=== PATIENT | male | born 1950 | race Caucasian/White ===

== ENCOUNTER 2016-11-09 20:23 | Inpatient (IN) | payer MEDICARE, BC ==
[~2016-11-09] VITALS: Ht 185.4 cm; Wt 113.4 kg
--- NOTE | ~2016-11-09 | PR ---
[place], [place] PROGRESS NOTE NAME: [id number] UNIT #: [id number] ROOM: 309 DOCTOR: YUDITH HUNTER COREY BIRTHDATE: [birth year] DOS: 11/11/2016 CHIEF COMPLAINT: "Good morning." SUMMARY OF VISIT: The patient was assessed, interviewed in the dining room where he was being fed breakfast by a nurse. He is quite sedate this morning. His behaviors and impulsivity and outburst became so extreme last night that they had to give him Geodon. It should also be noted that since the Geodon injection, he has had hypersalivation, which he has had this before with other antipsychotics including Clozaril. The patient was able to talk to me, carry on a minimal conversation, but he could tell he was fighting to the medications on board. Apparently, he is pleasant for the most part and calm throughout the day and at nighttime, he completely loses control, tries to get out of bed and with his Parkinson's, could injure himself, becomes combative, very similar to what we are being told from the [facility]. PLAN: We will continue with the Exelon patch. I increased his Klonopin yesterday and added in between p.r.n. Vistaril if needed. This is just not enough to take away his extreme mood lability at night. I know we have Lewy body dementia on a RaDAR with his Parkinson's, but it is almost like every night and in the evenings, somewhat just ing that, he becomes out of control. The Geodon did work on him, but again, we have the hypersalivation, so I am going to try Seroquel. If it is Lewy body, I feel pretty good about using the Seroquel, so I am going to add 100 mg at bedtime to see if we can head off this owning or whatever it is and help him stay in bed and sleep at night without the behaviors. MENTAL STATUS: He is alert and oriented to person, I do not think place or time. No overt signs of auditory or visual hallucinations, delusions, paranoia, mark or hypomania. PLAN: Again, I am adding the 100 mg Seroquel at bedtime, continue with the Exelon and the Klonopin, the Remeron and the Vistaril p.r.n. The goal is to try and control these nighttime rages behaviors that he is having without oversedation. [place], [place] PROGRESS NOTE NAME: OPAL GOODMAN UNIT #: [id number] ROOM: [facility] DOCTOR: YUDITH HUNTER BIRTHDATE: [birth year] COREY HUNTER CNP CM:PNYVETTE [id number] YUDITH HUNTER 11/11/16 1247 interface
--- NOTE | ~2016-11-09 | PR ---
[place], [place] PROGRESS NOTE NAME: OPAL GOODMAN UNIT #: [id number] ROOM: 309 DOCTOR: YUDITH HUNTER BIRTHDATE: [birth year] DOS: 11/13/2016 CHIEF COMPLAINT: "Good morning." SUMMARY OF VISIT: The patient was assessed in the dining room where he was waiting for breakfast. He engaged in conversation, he is most alert I have seen him. Nurses noted though; however, he was quite behavioral throughout the day yesterday. His mood lability is quite wild. He is calm 1 minute and then cussing and very bizarre the next. He did sleep though last night with the assistance of the Seroquel. MENTAL STATUS: He is alert and oriented to person, place, not time. Mood still quite widely labile. Affect is inappropriate. No overt signs of auditory or visual hallucinations, mark or hypomania, but when his mood swings, he does become quite paranoia and delusional. PLAN: Dr. Ruiz did increase his Seroquel to 50 mg in the morning and 100 at night. I am going to go ahead and increase the daytime dosage from 50 q.a.m. to 50 b.i.d. and keep the 100 mg at night since he is sleeping on the 100 mg. I am trying to head off some of this mood lability. He is not on any Parkinson's drugs at this time. Dr. Ruiz wanted to know why. Per his who is his guardian, he was on them previously and had bad reactions to them, so this is why he is not on them. While tried to get a list of the specific medications that he had reactions to, it should be noted that he was also the patient that was here previously on Clozaril who became hypersalivatory and I think this is pretty much what goes on with him when he gets starting medication in the system. We will continue to try to engage in individual and marti milieu therapy, we are just trying to decrease or stop these wild mood swings and go from there. COREY HUNTER CNP CM:PNTRANS [id number] YUDITH HUNTER 12/25/16 1226 interface
--- NOTE | ~2016-11-09 | DS ---
[place], [place] DISCHARGE SUMMARY NAME: [facility] GOODMAN [facility] [id number] UNIT #: [id number] ROOM: 309 DOCTOR: JONN ENCARNACION MD BIRTHDATE: [birth year] DOS: 11/19/2016 CHIEF COMPLAINT: "I better not tell you why I am here because you just going to keep me longer" HISTORY OF PRESENT ILLNESS: This is a 66-year-old white male, who was readmitted here from [facility]. The patient has a lengthy history of Parkinson's disease, diagnosed approximately 9 years ago and he has progressed to the point now where it is causing some cognitive loss as well as significant auditory and visual hallucinations. The patient has become actively psychotic while [place]. He has been seeing things come out of the TV, children playing in the yard and playing with him. He reported that there was a baby in his room all night long and that kept him up. He has become increasingly more agitated towards staff as well as verbally and physically aggressive to them to the point where they no longer could care for him safely. The patient had been here previously in 09/2016. He was attempted to be stabilized on Clozaril at that time, but it caused excessive hypersalivation and the addition of Cogentin did not help. Eventually, he was stabilized just on Exelon patch and Depakote and sent back to [place]. Since his symptoms have progressed further, he is now readmitted to rule out any further organic factors to attempt to restabilize on medication, ultimately returning to [facility] once psychiatrically stable. PAST MEDICAL HISTORY: Remarkable for the lengthy history of Parkinson's disease, GERD, DVT, and hypertension. SUMMARY OF HOSPITAL COURSE: The patient was admitted to the unit where he was maintained on his Exelon patch 13.3 mg a day. THE PATIENT HAS A SIGNIFICANT ALLERGY TO NAMENDA, so he could not be augmented with this. His Klonopin dose was increased from 0.5 twice a day to 0.5 three times a day in order to decrease some of his impulsivity. Due to the severity of his psychotic symptoms and extreme mood lability as well as paranoia, he was started on Seroquel as an antipsychotic with low extrapyramidal side effect risk. He tolerated the Seroquel well and the dose was gradually increased to its maximum dose of 50 mg twice daily and 150 mg at bedtime. He did not exhibit any sedation or somnolence during the day from the Seroquel nor did he seem to have a worsening of the parkinsonian symptoms. It did impact positively on decreasing the frequency and intensity of his hallucinations as well as decreasing his mood lability. Some mild paranoia remained, but he was redirectable. He had improved sufficiently by 11/19/2016 to return back to [facility]. MENTAL STATUS AT DISCHARGE: The patient is alert and oriented to person, place and not necessarily to time. Mood was strongly trending towards euthymia. Affect was much more appropriate. Speech rate and pattern were very slow and deliberate and he has some marked processing difficulty. Short-term memory is poor. His overall level of delusions and paranoia had decreased from his admission. 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 [place], [place] DISCHARGE SUMMARY NAME: OPAL GOODMAN UNIT #: [id number] ROOM: 309 DOCTOR: JONN ENCARNACION MD BIRTHDATE: [birth year] PLAN: All of his prescriptions have been sent to [facility] a long-term care pharmacy. His Klonopin prescription has been printed and will be sent with him. I will follow him upon his return to [facility]. JONN ENCARNACION MD CM:KATLYN [phone] JONN ENCARNACION MD 11/19/16 0807 interface
--- NOTE | ~2016-11-09 | PR ---
[place], [place] PROGRESS NOTE NAME: OPAL GOODMAN UNIT #: [id number] ROOM: 309 DOCTOR: JONN ENCARNACION MD BIRTHDATE: [birth year] DOS: 11/15/2016 INTERVAL NOTE CHIEF COMPLAINT: "I have no comment about [facility]." SUMMARY OF THE VISIT: The patient was interviewed in the dining area. He had completed his breakfast and engaged readily in conversation. He was predominantly superficial and reported no issues. He reported that he slept well and ate a good breakfast. When I discussed going back to [place] and whether he liked it there, he was rather negative at first and then kept telling me no comment. He was at least pleasant, however, and exhibited no agitation or aggression. MENTAL STATUS EXAMINATION: This morning, he is alert and oriented to person, select others place, but not time. He lacks spontaneity and his responses tended to be short and simple. There was no hypomania or mark present. There was no overt auditory or visual hallucinations voiced. No paranoia, no delusions. Short-term memory was extremely poor. PLAN: At the present time, I will maintain his current psychotropic regimen that includes Seroquel, Remeron, and Exelon patch. We will continue to engage him in individual and mrati milieu activity with the ultimate plan to return to [facility] when psychiatrically stable. JONN ENCARNACION MD CM:PNTRANS [phone] JONN ENCARNACION MD 11/16/16 0158 interface
--- NOTE | ~2016-11-09 | WRIGHTHP ---
[place], [place] PATIENT HISTORY AND PHYSICAL EXAM [id number] UNIT #: [id number] ROOM: 309 DOCTOR: YUDITH HUNTER BIRTHDATE: [birth year] DOS: 11/10/2016 HISTORY OF PRESENT ILLNESS: A 66-year-old male known to us due to recent discharge from the behavioral unit on 09/20/2016 to [facility]. He has a history of Parkinson's disease diagnosed approximately 9 years ago and it has progressed. He is starting to have dementia as well. He does follow with doctors at the [facility]. He does become actively psychotic seeing things on the TV, children playing in the yard and playing with him. There is a baby in the room all night long, actually hallucinating, acting out towards his . At the time of his discharge on 09/20/2016, we had Lewy body dementia as a possibility on the spectrum, so we were being cautious about what medications to use. In the past, we used Clozaril, but caused hypersalivation and the Cogentin did not help, so that had to be discontinued. He is also allergic to Namenda. Diagnosis includes Parkinson's disease, PBA, dementia. PLAN: I am keeping him on his Exelon patch 13.3 mg every day for his dementia. I am going to increase his Klonopin. He is quite impulsive. He was on 0.25 q.a.m. and 0.5 at night. I increased him yesterday to 0.5 b.i.d., but I am going to go ahead and go up to 0.5 t.i.d. to see if I can help with some of the mood lability and impulsivity and being cautious trying to avoid antipsychotics because of the possibility of Lewy body dementia. I am going to add some Vistaril p.r.n. for the staff to use also if he becomes behavioral. We have the Geodon and Ativan p.r.n. if needed. I have discussed in length the caution for falls risk and just keep a close eye on him. I will use a Lori chair the next 24 hours and get a better appreciation as far as what is going on with him. He is not sleeping, so I added Remeron 15 mg at bedtime along again with his Nuedexta we are continuing trying to keep the medications as simple as possible. MENTAL STATUS EXAMINATION: He is alert and oriented to person, not place or time. Per the Emergency Room doctor that called me last night he was delusional, possibly even hallucinating. He is still somewhat sleepy this morning because it is early and he did not get all his meds till about 2:00 a.m. this morning. No mark or hypomania. Poor sleep. Appetite, so-so. PAST MEDICAL HISTORY: Includes Parkinson's disease, GERD, DVT, and hypertension. PLAN: I am going to go ahead and add back his vitamin D. He was vitamin D deficient. Increase his Klonopin to 0.5 t.i.d., watch for over sedation, keep his Exelon and Nuedexta where they are at and we will add some Vistaril p.r.n. I do not know how effective individual and marti milieu therapy will be for this gentleman, but we will observe him over the next 24 hours. I will make some adjustments in meds as appropriate. [place], [place] PATIENT HISTORY AND PHYSICAL EXAM NAME: OPAL GOODMAN UNIT #: [id number] ROOM: 309 DOCTOR: YUDITH HUNTER BIRTHDATE: [birth year] COREY HUNTER CNP CM:HISPHYS:PATIENT HISTORY AND PHYSICAL EXAMINATION [phone] YUDITH HUNTER 12/25/16 1221 interface
--- NOTE | ~2016-11-09 | PR ---
[place], [place] PROGRESS NOTE NAME: OAPL GOODMAN UNIT #: [id number] ROOM: 309 DOCTOR: YUDITH HUNTER BIRTHDATE: [birth year] DOS: 11/14/2016 CHIEF COMPLAINT: "Good morning." SUMMARY OF VISIT: The patient assessed and interviewed in the dining room where he was watching TV. He was alert, engaging in conversation, smiled appropriately. States that he is feeling overall well. It should be noted that I discussed his issues with nursing and psychologist social. Apparently, the came to visit yesterday and then under 5 minutes, he became agitated, yelling. She got up and left. He is still accusing her of an affair and some other things, so I do not know how much of this is delusion and paranoia and how much of this is grounded in fact. I guess we need to figure this out because he may be behavioral towards her because something truly is going on or is he behavioral towards her because he is just delusional and paranoid because of his illness. MENTAL STATUS: He is alert and oriented to person, place, approximate time. Mood actually was trending towards euthymic, but yesterday, kind of had a setback with the . She is definitely a trigger so he can be wildly labile at times with certain interactions. Affect was appropriate for me. There are no overt signs of auditory or visual hallucinations. Again, yesterday, I do not know if that was a delusion or paranoia towards his or if it is rooted in some type of fact, I am not sure how to find that out. PLAN: Nursing did notice that he did better on the higher doses of Seroquel yesterday that I added. There is no hypersalivation that I can see. So, I am going to increase the nighttime dose and we will have Seroquel 50 mg once in the morning, once in the afternoon and 150 at night. He did state that he slept very well last night. We will continue with the other meds. We are going to try to engage in individual and marti milieu therapy and discharge once stable. COREY HUNTER CNP CM:PNTRANS 0747 YUDITH HUNTER 11/15/1637 interface
--- NOTE | ~2016-11-09 | PR ---
[place], [place] PROGRESS NOTE NAME: OPAL GOODMAN UNIT #: [id number] ROOM: 309 DOCTOR: JONN ENCARNACION MD BIRTHDATE: [birth year] DOS: 11/12/2016 INTERVAL NOTE CHIEF COMPLAINT: "I am not talking because it's just going to implicate me further and all the problems." SUMMARY OF THE VISIT: The patient was interviewed in the dining area where he was eating breakfast. He stopped and engaged in conversation. There was a great deal of paranoia present and he would not talk to me stating that what was happening to him was because people were plotting against him. He wanted me to call his sons and see if they could come and pick him up and take him home today. The patient continues to be very bizarre and very labile with his mood swings. MENTAL STATUS: He is alert and oriented to person, place, but not time. Mood does seem to be labile. Affect is inappropriate. There are no symptoms of mark or hypomania, but there is a great deal of delusions and paranoia present. Short-term memory has gaps. PLAN: I will increase his Seroquel to 50 mg in the morning and 100 mg at night while maintaining his other psychotropics. Of note, he is not on any antiparkinsonian drugs. I need to find out if this is because he is sensitive to them and has not done well. He would certainly seem to benefit from some Sinemet, Symmetrel or other agent that might improve his quality of life. JONN ENCARNACION MD CM:PNTRANS [id number] JONN ENCARNACION MD 11/12/16 1015 interface
--- NOTE | ~2016-11-09 | PR ---
[place], [place] PROGRESS NOTE NAME: OPAL GOODMAN UNIT #: [id number] ROOM: 309 DOCTOR: JONN ENCARNACION MD BIRTHDATE: [birth year] DOS: 11/16/2016 INTERVAL NOTE CHIEF COMPLAINT: "When do I get to leave here?" SUMMARY OF THE VISIT: The patient was interviewed as he sat in a Lori chair in the dining area. He remains rather negativistic reporting that he stated his breakfast. He does not like it here and wants to know when he can go back to [facility]. When I try to delve further into his thinking, He very quickly became paranoid and suspicious and repeatedly said, "I better not say what I'm thinking." Nurses report he continues to be rather terse with them and is irritable and short fused, but overall redirectable. He is tolerating his medication regimen well without any apparent side effects. MENTAL STATUS: He is alert and oriented to person, place, and approximate to time. Mood does still seem to be somewhat irritable and on edge. There is no symptom suggestive of hypomania or mark. There is no overt auditory or visual hallucination. There is a certain amount of paranoia present as he is rather guarded and very careful as to what to say. Short-term memory has gaps. PLAN: I will go ahead and renew his Klonopin, Ativan and hydroxyzine p.r.n.'s maintaining his current psychotropic regimen, continue to engage him in individual and marti milieu activity with the ultimate plan to return to [facility] when stable. JONN ENCARNACION MD CM:PNTRANS [phone] JONN ENCARNACION MD 11/17/16101 interface
--- NOTE | ~2016-11-09 | PR ---
[place], [place] PROGRESS NOTE [id number] UNIT #: [id number] ROOM: 309 DOCTOR: JONN ENCARNACION MD BIRTHDATE: [birth year] DOS: 11/18/2016 [facility] COMPLAINT: "I would like to go today but I guess I can wait till tomorrow." SUMMARY OF THE VISIT: The patient was interviewed in the dining area. He was sitting there comfortable and engaged readily in conversation with me. He had heard me tell many other patients that discharge might be till Friday due to transportation issues, so as I approached him, he did report that he would like to go today but tomorrow it would work if there were no other options. He was bright and pleasant upon approach, slow to process, but this is his baseline. There was no agitation or aggression. There was no mood lability noted. He also seemed to be tolerating the current medication regimen well and I see no extrapyramidal symptoms, tardive dyskinesia, or any other side effects. MENTAL STATUS: He is alert and oriented to person, place, but not time. Mood does seem to be trending towards euthymia and affect is much more appropriate. There are no symptoms suggestive of mark or hypomania. Likewise there are no overt auditory or visual hallucinations. No delusions are present. No paranoia is noted at this time. He does process very slowly and responds slowly as well. Short-term memory has gaps, otherwise, he is intact. PLAN: I will maintain the current psychotropic regimen and continue to monitor for risk and benefits. Continue to engage in individual and marti milieu activity with the ultimate plan to return to [facility] once psychiatrically stable. JONN ENCARNACION MD CM:PNTRANS [id number] JONN ENCARNACION MD 12/25/16 1223 interface
[~2016-11-09 20:23] MED LIST: 'CLONIDINE0.1 MG PO; AMANTADINE HCL100 M1 PO; ARICEPT10 M1 PO; ATIVAN1 MG PO; B COMPLEX & B121 TAB PO; CEFUROXIME AXE500 MG PO; CLONAZEPAM0.5 M2 PO; CLONIDINE HCL0.1 M1 PO; CLOZAPINE25 MG PO; COLACE100 MG PO; COUMADIN3 M1 PO; COUMADIN4 M2 PO; COUMADIN5 M2 PO; EXEL13.31 TD; EXELON13.3 MG/21 T; EXELON13.3 MG/21 TD; FLOMAX0.4 MG PO; KLONOPIN0.5 MG PO; LASIX40 MG PO; MIRTAZAPINE15 M2 PO; NIFEDIPINE30 MG PO; NUED1CAP PO; OMEPRAZOLE40 MG PO; SEROQUEL25 MG PO; TYLENOL325 M1 PO; VITAMIN B1250 MCG PO; VITAMIN D50000 I3 PO; ZOLOFT50 MG PO
[2016-11-09 20:51] VITALS: BP 162/78
[2016-11-09] MEDS ORDERED: ATIVAN2 MG/ML IM (21:16)
[2016-11-09] MEDS ORDERED: KLONOPIN0.5 MG PO (21:22)
[2016-11-09 23:30] VITALS: BP 135/75
[2016-11-10 07:28] LABS: FOLIC ACID 7.86 ng/mL (>5.38); VITAMIN D, 25-HYDROXY 51.1 ng/mL (30-100)
[2016-11-10 08:33] VITALS: BP 153/86
[2016-11-10 12:53] LABS: BASO # 0.1 10*3/uL (0.0-0.1); BASO % 0.7 % (0.0-1.0); EOS # 0.2 10*3/uL (0.0-0.4); EOS % 3.1 % (1.0-4.0); HEMATOCRIT 40.8 % (42.0-52.0); HEMOGLOBIN 12.9 g/dl (14.0-18.0); LYMPH # 1.6 10*3/uL (1.3-4.4); LYMPH % 23.8 % (27.0-41.0); MEAN CELL VOLUME 92.3 fl (80.0-94.0); MEAN CORPUSCULAR HGB 29.2 pg (27.0-31.0); MEAN CORPUSCULAR HGB CONC 31.6 g/dl (33.0-37.0); MEAN PLATELET VOLUME 9.1 fl (9.6-12.3); MONO # 0.3 10*3/uL (0.1-1.0); MONO % 3.9 % (3.0-9.0); NEUT # 4.6 10*3/uL (2.3-7.9); NEUT % 68.4 % (47.0-73.0); PLATELET COUNT AUTOMATED 320 10*3/uL (130-400); RED BLOOD COUNT 4.42 10*6/uL (4.50-5.90); RED CELL DISTRI WIDTH 12.5 % (0-14.5); WHITE BLOOD COUNT 6.7 10*3/uL (4.8-10.8)
[2016-11-10 13:03] LABS: INTERNATIONAL NORM RATIO 1.4 (2.0-3.5); PROTHROMBIN TIME 14.6 SECONDS (9.0-12.4)
[2016-11-10 13:10] LABS: ALBUMIN 3.5 gm/dl (3.1-4.5); ALKALINE PHOSPHATASE 84 U/L (45-117); BILIRUBIN, TOTAL 0.4 mg/dl (0.2-1.0); BUN 15 mg/dl (7-24); CARBON DIOXIDE 29 mmol/L (21-32); CHLORIDE 104 mmol/L (98-107); EST GLOM FILT AFRICAN AMERICAN > 60 ml/min; GLUCOSE 123 mg/dL (65-99); SGOT/AST 16 IU/L (3-35); SGPT/ALT 23 U/L (12-78); SODIUM 142 mmol/L (136-145); TOTAL PROTEIN 7.9 gm/dL (6.4-8.2)
[2016-11-10 19:47] VITALS: BP 149/87
[2016-11-11 07:17] LABS: INTERNATIONAL NORM RATIO 1.3 (2.0-3.5); PROTHROMBIN TIME 13.6 SECONDS (9.0-12.4)
[2016-11-11 08:15] VITALS: BP 115/68
[2016-11-11 19:57] VITALS: BP 106/66
[2016-11-12 08:00] VITALS: BP 102/62
[2016-11-12 08:05] LABS: INTERNATIONAL NORM RATIO 1.3 (2.0-3.5); PROTHROMBIN TIME 13.8 SECONDS (9.0-12.4)
[2016-11-12 19:57] VITALS: BP 125/70
[2016-11-13 08:00] VITALS: BP 101/65
[2016-11-13 08:02] LABS: INTERNATIONAL NORM RATIO 1.3 (2.0-3.5)
[2016-11-13 19:59] VITALS: BP 131/69
[2016-11-14 07:34] LABS: INTERNATIONAL NORM RATIO 1.5 (2.0-3.5); PROTHROMBIN TIME 15.9 SECONDS (9.0-12.4)
[2016-11-14 08:27] VITALS: BP 110/64
[2016-11-14 20:20] VITALS: BP 101/67
[2016-11-15 07:25] LABS: BASO % 0.6 % (0.0-1.0); EOS # 0.2 10*3/uL (0.0-0.4); EOS % 3.3 % (1.0-4.0); HEMATOCRIT 41.7 % (42.0-52.0); HEMOGLOBIN 13.2 g/dl (14.0-18.0); LYMPH # 1.5 10*3/uL (1.3-4.4); LYMPH % 22.1 % (27.0-41.0); MEAN CELL VOLUME 92.3 fl (80.0-94.0); MEAN CORPUSCULAR HGB 29.2 pg (27.0-31.0); MEAN CORPUSCULAR HGB CONC 31.7 g/dl (33.0-37.0); MEAN PLATELET VOLUME 10.1 fl (9.6-12.3); MONO # 0.5 10*3/uL (0.1-1.0); MONO % 7.7 % (3.0-9.0); NEUT # 4.4 10*3/uL (2.3-7.9); NEUT % 66.2 % (47.0-73.0); PLATELET COUNT AUTOMATED 262 10*3/uL (130-400); RED BLOOD COUNT 4.52 10*6/uL (4.50-5.90); WHITE BLOOD COUNT 6.7 10*3/uL (4.8-10.8)
[2016-11-15 07:43] LABS: BUN 16 mg/dl (7-24); CARBON DIOXIDE 29 mmol/L (21-32); CHLORIDE 105 mmol/L (98-107); EST GLOM FILT AFRICAN AMERICAN > 60 ml/min; GLUCOSE 85 mg/dL (65-99); POTASSIUM 4.1 mmol/L (3.5-5.1); SODIUM 143 mmol/L (136-145)
[2016-11-15 07:50] LABS: INTERNATIONAL NORM RATIO 1.9 (2.0-3.5); PROTHROMBIN TIME 21.1 SECONDS (9.0-12.4)
[2016-11-15 08:00] VITALS: BP 149/82
[2016-11-15 20:00] VITALS: BP 148/81
[2016-11-16 07:04] LABS: INTERNATIONAL NORM RATIO 2.4 (2.0-3.5); PROTHROMBIN TIME 26.6 SECONDS (9.0-12.4)
[2016-11-16 08:40] VITALS: BP 138/79
[2016-11-16 20:01] VITALS: BP 110/63
[2016-11-17 06:57] LABS: INTERNATIONAL NORM RATIO 2.6 (2.0-3.5); PROTHROMBIN TIME 28.4 SECONDS (9.0-12.4)
[2016-11-17 08:01] VITALS: BP 121/69
[2016-11-17 19:53] VITALS: BP 118/70
[2016-11-18 07:35] LABS: INTERNATIONAL NORM RATIO 3.4 (2.0-3.5); PROTHROMBIN TIME 37.1 SECONDS (9.0-12.4)
[2016-11-18 08:00] VITALS: BP 137/76
[2016-11-18 19:49] VITALS: BP 98/61
[2016-11-18 20:49] VITALS: BP 102/66
[2016-11-19 07:10] LABS: INTERNATIONAL NORM RATIO 3.5 (2.0-3.5); PROTHROMBIN TIME 38.7 SECONDS (9.0-12.4)
[2016-11-19] MEDS ORDERED: QUETIAPINE FUMA50 M1 PO ×2 (07:39)
[2016-11-19] MEDS ORDERED: QUETIAPINE FUM100 M3 PO (07:39)
[2016-11-19] MEDS ORDERED: CLONAZEPAM0.5 M2 PO (07:39)
[2016-11-19 08:39] VITALS: BP 111/64
[2016-11-19] MEDS ORDERED: COUMADIN6 M2 PO (12:27)
[2016-11-19] MEDS ORDERED: Coumadin5 MG PO (12:29)
== END 2016-11-19 13:20 | disposition other institution (70) | DRG 885 ==
LOC: 3N 20:23
PROVIDERS: Internal Medicine; Nurse Practitioner Adult Health
DX: F33.3 Major depressive disorder, recurrent, severe with psychotic symptoms (principal); G93.41 Metabolic encephalopathy; G20 Parkinson's disease; F02.80 Dementia in other diseases classified elsewhere, unspecified severity, without behavioral disturbance, psychotic disturbance, mood disturbance, and anxiety; F23 Brief psychotic disorder; N39.0 Urinary tract infection, site not specified; I10 Essential (primary) hypertension; K21.9 Gastro-esophageal reflux disease without esophagitis; W19.XXXA Unspecified fall, initial encounter; M54.5 Low back pain; Z80.1 Family history of malignant neoplasm of trachea, bronchus and lung; Z86.718 Personal history of other venous thrombosis and embolism; Z79.01 Long term (current) use of anticoagulants; Z79.899 Other long term (current) drug therapy; Z88.8 Allergy status to other drugs, medicaments and biological substances

== ENCOUNTER 2016-11-26 13:53 | Inpatient (IN) | payer MEDICARE, BC ==
[~2016-11-26] VITALS: Ht 185.4 cm; Wt 113.4 kg
--- NOTE | ~2016-11-26 | PR ---
[place], [place] PROGRESS NOTE NAME: OPAL GOODMAN UNIT #: [id number] ROOM: 309 DOCTOR: JONN ENCARNACION MD BIRTHDATE: [birth year] DOS: 11/29/2016 INTERVAL NOTE CHIEF COMPLAINT: "I can't talk, my mouth is so dry." SUMMARY OF THE VISIT: The patient was interviewed in the dining area. He was sitting comfortably in his Lori chair, watching television. He stopped and was able to engage readily in conversation with me. His only complaint was dry mouth. He states otherwise he is feeling well and slept well. He is much more conversant this morning and was engaging in fairly decent conversation. There was no voice delusional material. There is no paranoia. He also noted no somnolence, sedation, or other side effects. MENTAL STATUS: He is alert and oriented with time gaps. Mood does seem to be trending towards euthymia. Affect is more appropriate. There are no symptoms of mark or hypomania. There are no acute psychotic symptoms seem. Short term memory is poor. PLAN: I will maintain his current psychotropic regimen. I will go ahead and order straight Xero-Lube spray three times a day to offer some oral mucosa moisture, engage in individual and marti milieu activity with the plan to return to [facility] once psychiatrically stable. JONN ENCARNACION MD CM:PNTRANS [id number] JONN ENCARNACION MD 11/30/16 0049 interface
--- NOTE | ~2016-11-26 | PR ---
[place], [place] PROGRESS NOTE NAME: OPAL GOODMAN UNIT #: [id number] ROOM: 309 DOCTOR: YUDITH HUNTER BIRTHDATE: [birth year] DOS: 12/01/2016 CHIEF COMPLAINT: "Good morning." SUMMARY OF VISIT: The patient was assessed in the dining room, where he was sleeping after breakfast. He woke immediately, said "good morning", he could tell he was tired though. The patient has been on antibiotic Cipro since 11/30/2016 for his UTI. He is much more clear. He is tired today, but he was very physical and alert yesterday and combined with his Parkinson's and then the antibiotic and the UTI most likely just physically exhausted today. No behaviors noted. MENTAL STATUS: Alert and oriented to person, place, approximate time. The patient was able to tell the staff the directions to his house in [place], so his memory he might have some gaps, but overall intact. PLAN: Continue with the current psychotropic regimen along with the full course of the antibiotics for his urinary tract infection. Continue with Xero-Lube 3 times a day to help moisturize his mouth, it has been an ongoing complaint and then goal would be to get [facility] back [facility] once stable, most likely beginning of the week. COREY HUNTER CNP CM:PNYVETTE [phone] [id number] YUDITH HUNTER 12/01/16 2248 interface
--- NOTE | ~2016-11-26 | PR ---
[place], [place] PROGRESS NOTE NAME: OPAL GOODMAN UNIT #: [id number] ROOM: 309 DOCTOR: YUDITH HUNTER BIRTHDATE: [birth year] DOS: 11/28/2016 CHIEF COMPLAINT: Nonverbal. SUMMARY OF VISIT: The patient was assessed in the dining room where he was working on eating breakfast, no voiced complaints. Staff noted that he did need to receive a Geodon last night for increased agitation. He became combative and difficult to redirect in the morning and noncompliant with medications, but by afternoon, things have calmed down. He is pleasant, engaging. This may just be a result of mornings are a little bit more difficult for him to wake up and kind of get going. MENTAL STATUS: He is alert and oriented to person and place. Mood, still some anxious overtones. I do not see a lot of depression, just some anxious overtones right now, still some paranoia per staff and agitation. PLAN: His Seroquel was just adjusted yesterday. Let us see how the increased dose does. If we need to go up on it, we can. Currently, we will continue with the Klonopin and the Remeron as well. The long-term goal is to discharge him back to [facility] when stable. COREY HUNTER CNP CM:PNTRANS [id number] YUDITH HUNTER 01/06/17 1245 interface
--- NOTE | ~2016-11-26 | PR ---
[place], [place] PROGRESS NOTE NAME: OPAL GOODMAN UNIT #: [id number] ROOM: 309 DOCTOR: JONN ENCARNACION MD BIRTHDATE: [birth year] DOS: 12/02/2016 CHIEF COMPLAINT: "I am okay. Is it breakfast?" SUMMARY OF THE VISIT: The patient was interviewed in the dining area where he reclined in a Lori chair. He was resting at first, but awoke easily and engaged in conversation. Conversation continues to be very short and superficial and responses are likewise very short. He reports that he was ready for breakfast. There is still some paranoia present, but he redirects pretty readily. He seems to be tolerating the current medication regimen well. MENTAL STATUS: He is alert and oriented to person, select others place, but not time. Mood does seem to be trending towards euthymia. Affect is more appropriate. There are no symptoms of mark or hypomania. There is mild paranoia present. Short-term memory is poor. Otherwise, he is intact. PLAN: I will renew the Ativan and the Klonopin. Continue to engage in individual and marti milieu activity as we continue to look for alternative placements at this point. JONN ENCARNACION MD CM:PNTRANS [id number] [phone] JONN ENCARNACION MD 12/02/162026 interface
--- NOTE | ~2016-11-26 | WRIGHTHP ---
[place], [place] PATIENT HISTORY AND PHYSICAL EXAM NAME: OPAL GOODMAN UNIT #: [id number] ROOM: 309 DOCTOR: JONN ENCARNACION MD BIRTHDATE: [birth year] DOS: 11/27/2016 INITIAL PSYCHIATRIC EVALUATION CHIEF COMPLAINT: "I am not saying anything to you." HISTORY OF PRESENT ILLNESS: This is a 66-year-old white male, who was sent here on an involuntary basis from . The patient has resided at [facility] and had been a patient here in late October and early November, returning back to [place] on 11/19/2016. Upon his return, the patient gradually escalated to the point where he has been verbally and physically aggressive toward staff, striking out at staff repeatedly on the day of admission. The patient has been grossly psychotic and experiencing extreme paranoia. He is admitted now to rule out organic factors and to restabilize on medication. PAST MEDICAL HISTORY: Remarkable for long history of depression, DVT, GERD, hypercoagulable state, hypertension, Parkinson's disease. MENTAL STATUS: The patient is alert and oriented to person, place, but not time. Mood does seem to be somewhat depressed with anxious overtones. There is a great deal of paranoia present. There is no agitation or aggression. There were no acute auditory or visual hallucinations voiced. Short-term memory was poor. DIAGNOSES: Major depression, recurrent with psychotic features. PLAN: I have readjusted his Seroquel to 50 mg twice daily and 150 at bedtime. I have maintained his Klonopin at 0.5 mg 3 times a day and Remeron at 15 mg at bedtime. We will engage in individual and marti milieu activity with the plan to return to [facility] when stable. JONN ENCARNACION MD CM:HISPHYS:PATIENT HISTORY AND PHYSICAL EXAMINATION [id number] JONN ENCARNACION MD 11/27/16 1001 interface
--- NOTE | ~2016-11-26 | PR ---
[place], [place] PROGRESS NOTE NAME: OPAL GOODMAN UNIT #: [id number] ROOM: 309 DOCTOR: YUDITH HUNTER BIRTHDATE: [birth year] DOS: 11/30/2016 SUMMARY OF VISIT: The patient assessed in the dining room, he engaged in minimal conversation, did tell me that he was ready to go back to his room. It should be noted nursing brought to my attention that his UA seen as came back positive for UTI. He was started on Cipro. This may have been contributing factors to some of his behaviors. MENTAL STATUS: Alert and oriented to person, place, approximate time. Mood is definitely trending towards euthymic. Affect is appropriate. There are no overt signs of auditory or visual hallucinations, delusions, paranoia. PLAN: I will go ahead and continue with his current psychotropic regimen, Cipro has been started. Let us see if it helps him clear little bit more and Dr. Ruiz started the Xero-Lube 3 times a day to help moisturize his mouth as this was his complaint yesterday. Long-term plan is return him back to [facility] once stable. COREY HUNTER CNP CM:LOLIS [id number] YUDITH HUNTER 01/06/17 1243 interface
--- NOTE | ~2016-11-26 | DS ---
[place], [place] DISCHARGE SUMMARY NAME: [facility] GOODMAN [id number] UNIT #: [id number] ROOM: 309 DOCTOR: JONN ENCARNACION MD BIRTHDATE: [birth year] DOS: 12/03/2016 CHIEF COMPLAINT: "I am not saying anything to you." HISTORY OF PRESENT ILLNESS: This is a 66-year-old white male who was sent here on an involuntary basis from [facility]. The patient had resided at [facility], but had been a patient here in late October and early November returning back to [facility] on 11/19/2016. Upon his return back to [facility], the patient gradually escalated to the point where he was verbally and physically aggressive towards staff. He was striking out at staff repeatedly and making physical threats towards the residents. He was found to be grossly psychotic and was experiencing extreme paranoia. He was admitted back to the [facility] now to rule out any further organic factors and to attempt to restabilize on medication. PAST MEDICAL HISTORY: Remarkable for a long history of depression, DVT, GERD, hypercoagulable state, hypertension and Parkinson's disease. SUMMARY OF HOSPITAL COURSE: The patient was readmitted back to the unit where he was maintained on his dose of Klonopin of 0.5 mg 3 times daily and Remeron 15 mg at bedtime. His Seroquel was readjusted back to the point where he had been previously on the unit, which was 50 mg twice daily and 150 mg at bedtime. This dosing pattern seemed to be the most effective for him where he seemed to have control of his symptoms without any significant somnolence or sedation. Once this was done, his behavior dramatically improved. He became much more compliant while still somewhat paranoid at times, it was more subdued and he was able to redirect himself even. He was able to engage in individual and marti milieu activity readily and was able to voice positive plans for the future. Sleep and appetite normalized. He exhibited no side effects from the medication. There really was no somnolence, sedation, extrapyramidal symptoms or tardive dyskinesia. Social service is working with his and determined that they felt that [facility] was not going to meet his needs, so alternative placement was sought, [facility] in [place], [place] was a good choice for him and he was discharged there why I will follow him upon his return there. MENTAL STATUS AT THE DAY OF DISCHARGE: The patient was alert and oriented to person, place and very approximate to time. Speech was slow and halting, but he did attempt to engage in conversation. He was even spontaneous at times initiating a stream of thought. There was no symptom suggestive of mark or hypomania. The depression seemed to be under control and the paranoia while still present was redirectable. Short term memory had gaps, otherwise he was relatively well intact. 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 PLAN: The patient will be admitted to [facility]. I will follow him upon his admission there and all of his prescriptions have been printed and will be sent with him. [place], [place] DISCHARGE SUMMARY NAME: OPAL GOODMAN UNIT #: [id number] ROOM: 309 DOCTOR: JONN ENCARNACION MD BIRTHDATE: [birth year] JONN ENCARNACION MD CM:DISCHARG [id number] JONN ENCARNACION MD 12/03/16 1115 interface
[~2016-11-26 13:53] MED LIST changes: +ATIVAN2 MG/ML IM; +COUMADIN6 M2 PO; +Coumadin5 MG PO; +QUETIAPINE FUM100 M3 PO; +QUETIAPINE FUMA50 M1 PO
[2016-11-26] MEDS ORDERED: COUMADIN4 M2 PO (15:58)
[2016-11-26 20:39] VITALS: BP 126/78
[2016-11-26 22:26] VITALS: BP 126/78
[2016-11-27 08:18] VITALS: BP 158/94
[2016-11-27 09:53] LABS: BASO % 0.6 % (0.0-1.0); EOS # 0.2 10*3/uL (0.0-0.4); EOS % 3.8 % (1.0-4.0); HEMATOCRIT 39.6 % (42.0-52.0); HEMOGLOBIN 12.6 g/dl (14.0-18.0); LYMPH # 1.4 10*3/uL (1.3-4.4); LYMPH % 21.6 % (27.0-41.0); MEAN CELL VOLUME 91.7 fl (80.0-94.0); MEAN CORPUSCULAR HGB 29.2 pg (27.0-31.0); MEAN CORPUSCULAR HGB CONC 31.8 g/dl (33.0-37.0); MEAN PLATELET VOLUME 10.1 fl (9.6-12.3); MONO # 0.4 10*3/uL (0.1-1.0); MONO % 5.5 % (3.0-9.0); NEUT # 4.4 10*3/uL (2.3-7.9); NEUT % 68.2 % (47.0-73.0); PLATELET COUNT AUTOMATED 274 10*3/uL (130-400); RED BLOOD COUNT 4.32 10*6/uL (4.50-5.90); RED CELL DISTRI WIDTH 12.9 % (0-14.5); WHITE BLOOD COUNT 6.4 10*3/uL (4.8-10.8)
[2016-11-27 10:16] LABS: INTERNATIONAL NORM RATIO 2.2 (2.0-3.5); PROTHROMBIN TIME 24.1 SECONDS (9.0-12.4)
[2016-11-27 10:30] LABS: BUN 12 mg/dl (7-24); CARBON DIOXIDE 31 mmol/L (21-32); CHLORIDE 102 mmol/L (98-107); EST GLOM FILT AFRICAN AMERICAN > 60 ml/min; GLUCOSE 94 mg/dL (65-99); POTASSIUM 3.8 mmol/L (3.5-5.1); SODIUM 142 mmol/L (136-145)
[2016-11-28 09:44] LABS: INTERNATIONAL NORM RATIO 2.2 (2.0-3.5); PROTHROMBIN TIME 23.5 SECONDS (9.0-12.4)
[2016-11-28 20:00] VITALS: BP 135/77
[2016-11-29 08:11] VITALS: BP 114/74
[2016-11-29 10:17] LABS: INTERNATIONAL NORM RATIO 2.3 (2.0-3.5); PROTHROMBIN TIME 24.6 SECONDS (9.0-12.4)
[2016-11-29 20:00] VITALS: BP 116/86
[2016-11-30 00:06] LABS: BILIRUBIN NEGATIVE (NEGATIVE); BLOOD 3+ (NEGATIVE); COLOR YELLOW (YELLOW); GLUCOSE NEGATIVE (NEGATIVE); KETONE NEGATIVE (NEGATIVE); LEUKO ESTERASE 3+ (NEGATIVE); NITRITE NEGATIVE (NEGATIVE); PROTEIN NEGATIVE (NEGATIVE); UROBILINOGEN 0.2 E.U./dl (0.2-1.0)
[2016-11-30 00:13] LABS: CLARITY CLOUDY (CLEAR); WBC TNTC wbc/hpf (0-5)
[2016-11-30 00:14] LABS: BACTERIA 1+; RBC TNTC rbc/hpf (0-2); URINE REFLEX COMMENT YES (NO)
[2016-11-30 07:43] VITALS: BP 150/81
[2016-11-30 10:02] LABS: INTERNATIONAL NORM RATIO 2.5 (2.0-3.5); PROTHROMBIN TIME 26.8 SECONDS (9.0-12.4)
[2016-11-30 19:49] VITALS: BP 130/88
[2016-12-01 07:51] VITALS: BP 160/92
[2016-12-01 07:53] LABS: INTERNATIONAL NORM RATIO 2.5 (2.0-3.5); PROTHROMBIN TIME 26.8 SECONDS (9.0-12.4)
[2016-12-01 20:05] VITALS: BP 100/68
[2016-12-02 08:00] VITALS: BP 124/68
[2016-12-02 19:34] VITALS: BP 118/72
[2016-12-03] MEDS ORDERED: QUETIAPINE FUM100 M3 PO (07:37)
[2016-12-03] MEDS ORDERED: MIRTAZAPINE15 M2 PO (07:37)
[2016-12-03] MEDS ORDERED: QUETIAPINE FUMA50 M1 PO ×2 (07:37)
[2016-12-03] MEDS ORDERED: CLONAZEPAM0.5 M2 PO (07:37)
[2016-12-03] MEDS ORDERED: NUED1CAP PO (07:37)
[2016-12-03] MEDS ORDERED: VITAMIN D50000 I3 PO (07:37)
[2016-12-03] MEDS ORDERED: EXELON13.3 MG/21 T (07:37)
[2016-12-03 08:13] VITALS: BP 108/75
== END 2016-12-03 13:30 | disposition other institution (70) | DRG 885 ==
LOC: 3N 13:53
PROVIDERS: Internal Medicine; Student in an Organized Health Care Education/Training Program
DX: F33.3 Major depressive disorder, recurrent, severe with psychotic symptoms (principal); D68.59 Other primary thrombophilia; F02.81 Dementia in other diseases classified elsewhere, unspecified severity, with behavioral disturbance; G20 Parkinson's disease; I10 Essential (primary) hypertension; K21.9 Gastro-esophageal reflux disease without esophagitis; S40.021A Contusion of right upper arm, initial encounter; R60.0 Localized edema; Z80.1 Family history of malignant neoplasm of trachea, bronchus and lung; Z79.899 Other long term (current) drug therapy; Z86.718 Personal history of other venous thrombosis and embolism; Z79.01 Long term (current) use of anticoagulants